=== PATIENT | female | born 1960 | race Caucasian/White ===

== ENCOUNTER → 2020-11-17 | Emergency (ER) | payer BC ==
[~2020-11-17] VITALS: Ht 172.7 cm; Wt 75.0 kg
[~2020-11-17] MED LIST: DEXA6TAB PO; KETOROLAC 30 MG/ML VIAL IVP ONE; KETOROLAC 30 MG/ML VIAL ONE; NS IV 500 ML 500 ML IV ONE; NS IV 500 ML 500 ML ONE; ONDA4TAB11 PO; ONDANSETRON 4 MG/2 ML (SDV) Z0FRAN IVP ONE; ONDANSETRON 4 MG/2 ML (SDV) Z0FRAN ONE; POTASSIUM CL 10MEQ/50ML IVPB 50 ML IV ONE; PROM25TA14 PO; PROMETHAZINE INJ 25 MG/ML (PHENERGAN) AMP IVP ONE; [UNRECOGNIZED DRUG - SUPPLY]; fentaNYL INJ 100 MCG/2 ML AMP IVP ONE
[2020-11-17 03:43] VITALS: BP 176/84
[2020-11-17 04:02] LABS: ABG BASE EXCESS -0.6 MMOL/L (-2.5-2.5); ABG OXYGEN SATURATION 90 % (94-100); ABG PCO2 30 MMHG (35-45); ABG PH 7.49 (7.37-7.43); ABG PO2 60 MMHG (79-93); ABG TCO2 23.3 MMOL/L (21.0-31.0)
[2020-11-17 04:04] LABS: BASOPHILS % (AUTO) 0 % (0-10); EOSINOPHILS % (AUTO) 0 % (0-10); HEMATOCRIT 40 % (35-52); HEMOGLOBIN 13.2 g/dL (11.5-16.0); LYMPHOCYTES # (AUTO) 0.7 10^3/uL (1.0-4.0); LYMPHOCYTES % (AUTO) 10 % (12-44); MEAN CORPUSCULAR HEMOGLOBIN 28 pg (25-34); MEAN CORPUSCULAR HGB CONC 33 g/dL (32-36); MEAN CORPUSCULAR VOLUME 82 fL (80-99); MEAN PLATELET VOLUME 10.5 fL (9.0-12.2); MONOCYTES # (AUTO) 0.3 10^3/uL (0.0-1.0); MONOCYTES % (AUTO) 5 % (0-12); NEUTROPHILS # (AUTO) 5.7 10^3/uL (1.8-7.8); NEUTROPHILS % (AUTO) 85 % (42-75); PLATELET COUNT 254 10^3/uL (130-400); WHITE BLOOD COUNT 6.8 10^3/uL (4.3-11.0)
[2020-11-17 04:06] LABS: ALLENS TEST YES-POS; INSPIRED O2 ROOM AIR; PATIENT TEMP 37.3; VENTILATOR NO
--- NOTE | 2020-11-17 04:07 | ED Respiratory ---
General Stated Complaint: COVID +/SOA Source: patient Exam Limitations: no limitations History of Present Illness Date Seen by Provider: Nov 17, 2020 Time Seen by Provider: 03:45 Initial Comments Patient presents the ER by EMS from home with chief complaint of being short of breath nauseated and all over body aches and for the last couple days T-max of 99. She has had COVID-19 symptoms started on the eighth, 11 days ago. She is not vaccinated and does not have monoclonal antibodies. She is not been hospitalized nor does she have a history of COPD asthma or other lung disease. She does not use supplemental oxygen at baseline. EMS reports oxygen saturations around 90% on room air, 2 L brought her up to mid 90s. She received 4 mg of Zofran from EMS as well as about 900 cc of fluid since has been having diarrhea off and on as well as nausea and poor fluid intake. Patient states her nausea has significantly improved but is not completely gone. She has not used any antipyretics. Allergies and Home Medications Allergies Coded Allergies: No Known Drug Allergies (Unverified , 03/31/10) Home Medications Dexamethasone 6 Mg Tablet, 6 MG PO DAILY Prescribed by: KALYN CHANDLER on 11/17/20 0631 Ondansetron 4 Mg Tab.rapdis, 4-8 MG PO Q6H PRN for NAUSEA-1ST LINE Prescribed by: KALYN CHANDLER on 11/17/20 0631 Promethazine HCl 25 Mg Tablet, 25 MG PO Q6H PRN for NAUSEA/VOMITING-2ND LINE Prescribed by: KALYN CHANDLER on 11/17/20 0631 Patient Home Medication List Home Medication List Reviewed: Yes Review of Systems Review of Systems Constitutional: No chills, No diaphoresis EENTM: No ear discharge, No ear pain Respiratory: No cough, No phlegm; short of breath; No wheezing Cardiovascular: No chest pain, No palpitations Gastrointestinal: No abdominal pain, No nausea Genitourinary: No discharge, No dysuria : No Musculoskeletal: No back pain, No joint pain Skin: No pruritus, No rash All Other Systems Reviewed Negative Unless Noted: Yes Past Cjbrhxp-Qfqezd-Amzetp Hx Patient Social History Tobacco Use?: No Smoking Status: Former Smoker Use of E-Cig and/or Vaping dev: No Substance use?: No Physical Exam Vital Signs - First Documented 11/17/20 03:43 Temp 37.3 Pulse 73 Resp 23 B/P (MAP) 176/84 (114) Pulse Ox 94 O2 Delivery Nasal Cannula O2 Flow Rate 2.00 Capillary Refill : Height: '" Weight: lbs. oz. kg; BMI Method:Stated General Appearance: WD/WN, moderate distress Eyes: Bilateral Eye Normal Inspection, Bilateral Eye PERRL, Bilateral Eye EOMI HEENT: PERRL/EOMI, normal ENT inspection, TMs normal; No pharynx normal (Oral mucosa is mildly dry) Neck: full range of motion, supple, normal inspection Respiratory: lungs clear, normal breath sounds, respiratory distress (90% to 92% while at rest on room air. When she gets up to go to the bathroom she desats to about 87%.), other (96 to 97% on 2 L by nasal cannula) Cardiovascular: normal peripheral pulses, regular rate, rhythm Gastrointestinal: normal bowel sounds, non tender, soft Extremities: normal range of motion, non-tender, normal capillary refill Neurologic/Psychiatric: alert, normal mood/affect, oriented x 3 Skin: normal color, warm/dry Progress/Results/Core Measures Suspected Sepsis SIRS Temperature: Pulse: Respiratory Rate: Laboratory Tests 11/17/20 03:45: White Blood Count 6.8 Blood Pressure / Mean: Laboratory Tests 11/17/20 03:45: Creatinine 0.77, Platelet Count 254, Total Bilirubin 0.6 Results/Orders Lab Results Laboratory Tests Test 11/17/20 03:45 11/17/20 03:58 Range/Units White Blood Count 6.8 4.3-11.0 10^3/uL Red Blood Count 4.80 3.80-5.11 10^6/uL Hemoglobin 13.2 11.5-16.0 g/dL Hematocrit 40 35-52 % Mean Corpuscular Volume 82 80-99 fL Mean Corpuscular Hemoglobin 28 25-34 pg Mean Corpuscular Hemoglobin Concent 33 32-36 g/dL Red Cell Distribution Width 12.8 10.0-14.5 % Platelet Count 254 130-400 10^3/uL Mean Platelet Volume 10.5 9.0-12.2 fL Immature Granulocyte % (Auto) 0 % Neutrophils (%) (Auto) 85 H 42-75 % Lymphocytes (%) (Auto) 10 L 12-44 % Monocytes (%) (Auto) 5 0-12 % Eosinophils (%) (Auto) 0 0-10 % Basophils (%) (Auto) 0 0-10 % Neutrophils # (Auto) 5.7 1.8-7.8 10^3/uL Lymphocytes # (Auto) 0.7 L 1.0-4.0 10^3/uL Monocytes # (Auto) 0.3 0.0-1.0 10^3/uL Eosinophils # (Auto) 0.0 0.0-0.3 10^3/uL Basophils # (Auto) 0.0 0.0-0.1 10^3/uL Immature Granulocyte # (Auto) 0.0 0.0-0.1 10^3/uL Sodium Level 139 135-145 MMOL/L Potassium Level 3.0 L 3.6-5.0 MMOL/L Chloride Level 101 98-107 MMOL/L Carbon Dioxide Level 27 21-32 MMOL/L Anion Gap 11 5-14 MMOL/L Blood Urea Nitrogen 15 7-18 MG/DL Creatinine 0.77 0.60-1.30 MG/DL Estimat Glomerular Filtration Rate > 60 BUN/Creatinine Ratio 19 Glucose Level 94 70-105 MG/DL Calcium Level 8.4 L 8.5-10.1 MG/DL Corrected Calcium 8.9 8.5-10.1 MG/DL Magnesium Level 1.6 1.6-2.4 MG/DL Total Bilirubin 0.6 0.1-1.0 MG/DL Aspartate Amino Transf (AST/SGOT) 41 H 5-34 U/L Alanine Aminotransferase (ALT/SGPT) 34 0-55 U/L Alkaline Phosphatase 63 40-136 U/L C-Reactive Protein High Sensitivity 4.98 H 0.00-0.50 MG/DL B-Type Natriuretic Peptide 74.6 <100.0 PG/ML Total Protein 6.4 6.4-8.2 GM/DL Albumin 3.4 3.2-4.5 GM/DL Procalcitonin 0.06 <0.10 NG/ML Blood Gas Puncture Site LEFT RAD Blood Gas Patient Temperature 37.3 Arterial Blood pH 7.49 H 7.37-7.43 Arterial Blood Partial Pressure CO2 30 L 35-45 MMHG Arterial Blood Partial Pressure O2 60 L 79-93 MMHG Arterial Blood HCO3 22 L 23-27 MMOL/L Arterial Blood Total CO2 23.3 21.0-31.0 MMOL/L Arterial Blood Oxygen Saturation 90 L 94-100 % Arterial Blood Base Excess -0.6 -2.5-2.5 MMOL/L Grant Test YES-POS Blood Gas Ventilator Setting NO Blood Gas Inspired Oxygen ROOM AIR My Orders Orders - KALYN CHANDLER Ed Iv/Invasive Line Start (11/17/20 03:56) Ns Iv 500 Ml (Sodium Chloride 0.9%) (11/17/20 04:00) Ondansetron Injection (Zofran Injectio (11/17/20 04:00) Ketorolac Injection (Toradol Injection) (11/17/20 04:00) Hs C Reactive Protein (11/17/20 03:56) Procalcitonin (Pct) (11/17/20 03:56) Arterial Blood Gas (11/17/20 03:56) Cbc With Automated Diff (11/17/20 03:56) Comprehensive Metabolic Panel (11/17/20 03:56) Chest 1 View, Ap/Pa Only (11/17/20 03:56) Ketorolac Injection (Toradol Injection) (11/17/20 03:56) Ondansetron Injection (Zofran Injectio (11/17/20 03:56) Ns Iv 500 Ml (Sodium Chloride 0.9%) (11/17/20 03:57) BNP (11/17/20 04:02) Potassium Cl 10meq/50ml Ivpb (Kcl 10 Meq (11/17/20 05:15) Magnesium (11/17/20 05:02) Promethazine Injection (Phenergan Injec (11/17/20 05:30) Fentanyl Inj (Sublimaze Injection) (11/17/20 05:30) Dexamethasone Injection (Decadron Injec (11/17/20 06:45) Medications Given in ED Vital Signs/I&O 11/17/20 03:43 Temp 37.3 Pulse 73 Resp 23 B/P (MAP) 176/84 (114) Pulse Ox 94 O2 Delivery Nasal Cannula O2 Flow Rate 2.00 Capillary Refill : Progress Note #1: Time: 04:08 Progress Note Patient is hypoxic likely from post Covid syndrome. We will look for evidence of a opportunistic bacterial infection. Put her on 2 L and gave her another 4 of Zofran. I suspect some of her nausea may be due to the hypoxia. If we can get her set up with oxygen at home it could be a reasonable approach if everything else looks okay. Expect her chest x-ray will probably show some groundglass opacities. She is outside the window for monoclonal antibodies. 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 Her temperature stayed around 99.1. She is still little nauseated despite a couple doses of Zofran Zofran give her some Phenergan. We discussed going home on oxygen versus an observation stay and at this time she would prefer to try to go home and certainly give her some electrolytes check a magnesium level and a little more time including some fentanyl for her headache. Progress Note #3: Time: 06:25 Progress Note The patient's headache is significantly improved. Her nausea is all but gone. Plan to start her on some dexamethasone, let her finish her fluids and send her home with Phenergan, Zofran and oxygen. We did again offer the patient an opportunity for observation in the hospital she says she would prefer to go home. She is maintaining oxygen sats while asleep of 97 to 98% on 2 L. Return precautions were given. Diagnostic Imaging Diagonstic Imaging: Xray Plain Films/CT/US/NM/MRI: chest Comments [facility], [place] NAME: SERGEI SUTTON [facility] REC#: [id number] PT STATUS: REG ER : 1960 PHYSICIAN: KALYN CHANDLER MD ADMIT DATE: 11/17/20/ER Draft Date of Exam:11/17/20 CHEST 1 VIEW, AP/PA ONLY CHEST 1 VIEW, AP/PA ONLY Indication: Shortness of air Comparison: None available. Findings: Patchy consolidations are present throughout the right lung and left lung base. No pleural effusion or pneumothorax. Normal heart size. Impression: 1. Patchy bilateral pulmonary opacities are most likely due to multifocal infection in the acute setting. It is possible some of these are chronic in nature, but there are no remote images to assess stability. Advise followup PA and lateral chest radiographs in 4 weeks after appropriate medical management to ensure resolution. Dictated on workstation # [id number] Dict: 11/17/20 0603 Trans: 11/17/20 0605 ESTELLE [id number] Interpreted by: ERMELINDA MARS MD Electronically signed by: Reviewed: Reviewed by Me Departure Impression Primary Impression: COVID-19 Additional Impressions: Acute hypoxemic respiratory failure due to COVID-19 Dehydration Hypokalemia due to excessive gastrointestinal loss of potassium Disposition: 01 HOME, SELF-CARE Condition: Stable Departure-Patient Inst. Decision time for Depature: 06:27 Patient Instructions: COVID-19 (DC), Oxygen Therapy, Adult (DC), Hypokalemia Add. Discharge Instructions: You do not need to continue the antibiotics at this time. Start taking dexamethasone 6 mg tablets daily for the next 9 days starting 11/18/2020. Zofran/ondansetron 1 to 2 tablets under the tongue every 6 hours as necessary for nausea and/or vomiting. Phenergan 1 tablet every 6 hours as necessary for intractable nausea or vomiting. Wear the oxygen to maintain oxygen saturations in the range of 94 to 98%. 2 to 5 L will typically work. If you are needing more oxygen and cannot maintain oxygen sats above 90% while at rest then you need to return to the nearest ER. Drink plenty of fluids. Sports drinks are encouraged. Tylenol 1000 mg every 8 hours as necessary for pain or fever. Ibuprofen 800 mg every 8 hours as necessary for pain and/or fever. Scripts Dexamethasone (Dexamethasone) 6 Mg Tablet 6 MG PO DAILY for 9 Days, #9 TAB 0 Refills Prov: KALYN CHANDLER 11/17/20 Promethazine HCl (Promethazine Tablet) 25 Mg Tablet 25 MG PO Q6H PRN for NAUSEA/VOMITING-2ND LINE, #15 TAB 0 Refills Prov: KALYN CHANDLER 11/17/20 Ondansetron (Ondansetron Odt) 4 Mg Tab.rapdis 4-8 MG PO Q6H PRN for NAUSEA-1ST LINE, #30 TAB 0 Refills Prov: KALYN CHANDLER 11/17/20 [concentrator, Oxygen] No Conflict Check L NA DAILY PRN for SHORTNESS OF BREATH, #3 0 Refills Oxygen concentrator nasal cannula 2 to 5 L as necessary for shortness of air. Prov: KALYN CHANDLER 11/17/20 Work/School Note: Work Release Form Date Seen in the Emergency Department: Nov 17, 2020 Return to Work: Nov 24, 2020 Restrictions: Return-No Fever (24hrs) KALYN CHANDLER Nov 17, 2020 04:07
[2020-11-17 04:09] LABS: ALBUMIN 3.4 GM/DL (3.2-4.5); CHLORIDE 101 MMOL/L (98-107); SODIUM 139 MMOL/L (135-145)
[2020-11-17 04:10] LABS: CALCIUM 8.4 MG/DL (8.5-10.1)
[2020-11-17 04:11] LABS: GLUCOSE 94 MG/DL (70-105)
[2020-11-17 04:12] LABS: TOTAL PROTEIN 6.4 GM/DL (6.4-8.2)
[2020-11-17 04:13] LABS: BILIRUBIN,TOTAL 0.6 MG/DL (0.1-1.0); CARBON DIOXIDE 27 MMOL/L (21-32)
[2020-11-17 04:15] LABS: ALKALINE PHOSPHATASE 63 U/L (40-136); CREATININE SERUM 0.77 MG/DL (0.60-1.30); GFR ESTIMATED > 60
[2020-11-17 04:16] LABS: BUN/CREATININE RATIO 19
[2020-11-17 04:18] LABS: ALANINE AMINOTRANSFERASE 34 U/L (0-55)
--- NOTE | 2020-11-17 06:05 | Diagnostic Imaging Report ---
CHEST 1 VIEW, AP/PA ONLY Indication: Shortness of air Comparison: None available. Findings: Patchy consolidations are present throughout the right lung and left lung base. No pleural effusion or pneumothorax. Normal heart size. Impression: 1. Patchy bilateral pulmonary opacities are most likely due to multifocal infection in the acute setting. It is possible some of these are chronic in nature, but there are no remote images to assess stability. Advise followup PA and lateral chest radiographs in 4 weeks after appropriate medical management to ensure resolution. Dictated by: Dictated on workstation # [id number]
== END ==
LOC: EDUNIT# 03:43 → ER 03:45
DX: U07.1 COVID-19 (principal); J96.01 Acute respiratory failure with hypoxia; E86.0 Dehydration; E87.6 Hypokalemia; Z87.891 Personal history of nicotine dependence
CPT/HCPCS: 36415; 71045; 80053; 82805; 83735; 83880; 84145; 85025; 86141